=== PATIENT | female | born 1960 | race Caucasian/White ===

== ENCOUNTER 2016-12-11 09:48 | Inpatient (IN) | payer BC, OTHER ==
[2016-12-11] VITALS (11 sets, daily range): BP systolic 112–131; BP diastolic 62–89; PULSE 98–121; RESP 18–28; TEMP 97.5–98.6; O2SAT 93–100
[~2016-12-11] VITALS: Ht 165.1 cm; Wt 80.1 kg
[~2016-12-11 09:48] MED LIST: ALPR.5 PO; CELE20TA PO; GABA300C5 PO; MELO-1 PO; PREM0.3T2 PO
--- NOTE | 2016-12-11 10:12 | PD ---
HPI Chief Complaint: Respiratory Symptoms Time Seen by Provider: 09:57 Travel History International Travel<30 days: No Contact w/Intl Traveler<30days: No Traveled to known affect area: No History of Present Illness HPI The patient is a 56-year-old female who presents emergency department from her physician's office for evaluation for possible pulmonary embolism. The patient states she had acute, sudden onset of shortness of breath yesterday. The patient states she has been short of breath since yesterday, worse with exertion, minimally alleviated at rest. The patient denies any chest pain, cough, tobacco history, or history of congestive heart failure, COPD , asthma, recurrent pneumonia. The patient is currently treated with estrogen for postmenopausal symptoms, but denies any known history of pulmonary embolism or DVT. The patient denies any recent hospitalizations, recent surgeries, recent prolonged travel. She denies any acute swelling to lower extremities. The patient's symptoms are moderate, worse with exertion, and minimally alleviated at rest. The patient does have a history of sciatica, but denies any known history of CAD or cardiomyopathy. PFSH Past Medical History Narrative Medical Sciatica Medical History: Denies Significant Hx Influenza Vaccination: No ?: Not Menopausal: Yes Past Surgical History Narrative Surgical Appendectomy, tonsillectomy Appendectomy: Yes Tonsillectomy: Yes Social History Alcohol Use: No Tobacco Use: No Substance Use: No Allergies-Medications (Allergen,Severity, Reaction): Coded Allergies: No Known Allergies (Unverified , 12/11/16) Reported Meds & Prescriptions Reported Meds & Active Scripts Active Celexa (Citalopram Hydrobromide) 20 Mg Tab 20 Mg PO DAILY Prempro Blister Pack (Estrogens Conj/Medroxyprogest Acet) 0.3-1.5 Mg Tab 1 Tab PO DAILY Reported Gabapentin 300 Mg Cap 300 Mg PO DAILY Meloxicam 15 Mg Tab 15 Mg PO TID PRN Review of Systems Except as stated in HPI: all other systems reviewed are Neg General / Constitutional: No: Fever HENT: No: Lightheadedness Cardiovascular: Positive: Dyspnea on exertion, No: Chest Pain or Discomfort, Diaphoresis Respiratory: Positive: Shortness of Breath, No: Cough Gastrointestinal: No: Nausea, Vomiting, Abdominal Pain Musculoskeletal: No: Edema Neurologic: No: Dizziness Physical Exam Narrative GENERAL: Awake, alert, pleasant 56-year-old female who appears her stated age and is in mild respiratory distress. SKIN: Warm and dry. HEAD: Atraumatic. Normocephalic. EYES: Pupils equal and round. No scleral icterus. No injection or drainage. ENT: No nasal bleeding or discharge. Mucous membranes pink and moist. NECK: Trachea midline. No JVD. CARDIOVASCULAR: Regular, tachycardic with a heart rate of 115. RESPIRATORY: No accessory muscle use. Clear to auscultation. Breath sounds equal bilaterally. GASTROINTESTINAL: Abdomen soft, non-tender, nondistended. No rebound tenderness. MUSCULOSKELETAL: No obvious deformities. No clubbing. No cyanosis. No edema. Calves are soft bilaterally. NEUROLOGICAL: Awake and alert. No obvious cranial nerve deficits. Motor grossly within normal limits. Normal speech. PSYCHIATRIC: Appropriate mood and affect; insight and judgment normal. Data Data Last Documented VS Vital Signs Date Time Temp Pulse Resp B/P Pulse Ox O2 Delivery O2 Flow Rate FiO2 12/11/16 10:57 98 Nasal Cannula 2 12/11/16 10:30 110 20 112/62 12/11/16 09:53 97.7 Orders Complete Blood Count With Diff (12/11/16 10:07) Comprehensive Metabolic Panel (12/11/16 10:07) B-Type Natriuretic Peptide (12/11/16 10:07) Act Partial Throm Time (Ptt) (12/11/16 10:07) Prothrombin Time / Inr (Pt) (12/11/16 10:07) Magnesium (Mg) (12/11/16 10:07) Ckmb (Isoenzyme) Profile (12/11/16 10:07) Troponin I (12/11/16 10:07) Iv Access Insert/Monitor (12/11/16 10:07) Electrocardiogram (12/11/16 10:07) Ecg Monitoring (12/11/16 10:07) Oximetry (12/11/16 10:07) Oxygen Administration (12/11/16 10:07) Chest, Single Ap (12/11/16 10:07) Ct Pulmonary Angiogram (12/11/16 10:07) Sodium Chloride 0.9% Flush (Ns Flush) (12/11/16 10:15) Resp Blood Gas Venous (12/11/16 ) Blood Gas Venous (Vbg) (12/11/16 10:15) Iohexol 350 Inj (Omnipaque 350 Inj) (12/11/16 11:18) Heparin Infusion LIONEL.Q1H (12/11/16 11:25) Heparin Inj (Heparin Inj) (12/11/16 11:30) Heparin Inj (Heparin Inj) (12/11/16 17:30) Heparin Inj (Heparin Inj) (12/11/16 17:30) Heparin-D5w Inj (Heparin-D5w Inj) (12/11/16 11:30) Act Partial Throm Time (Ptt) (12/11/16 11:25) Cbc No Diff, Includes Plts (12/11/16 11:25) Cbc No Diff, Includes Plts (12/14/16 06:00) Act Partial Throm Time (Ptt) (12/11/16 18:25) Occult Blood (Hemoccult) Stool (12/11/16 11:25) Diphenhydramine Inj (Benadryl Inj) (12/11/16 12:00) Admit Order (Ed Use Only) (12/11/16 12:00) Labs Laboratory Tests Test 12/11/16 12/11/16 12/11/16 10:15 10:16 11:35 Blood Gas Puncture Site RAC Blood Gas Patient Temperature 37.0 Venous Blood pH 7.42 Venous Blood Partial Pressure 36 mmHg CO2 Venous Blood Partial Pressure 20 mmHg O2 Venous Blood HCO3 23 mmol/L Venous Blood Oxygen Saturation 28 % Venous Blood Oxygen Content 6.1 Vol % Venous Blood Base Excess -1.0 mmol/L Oxygen Delivery Device ROOM AIR Blood Gas Inspired Oxygen 21 % White Blood Count 8.8 TH/MM3 10.0 TH/MM3 Red Blood Count 4.73 MIL/MM3 4.37 MIL/MM3 Hemoglobin 15.3 GM/DL 14.3 GM/DL Hematocrit 45.0 % 42.0 % Mean Corpuscular Volume 95.3 FL 96.0 FL Mean Corpuscular Hemoglobin 32.4 PG 32.6 PG Mean Corpuscular Hemoglobin 34.0 % 34.0 % Concent Red Cell Distribution Width 14.0 % 13.9 % Platelet Count 289 TH/MM3 254 TH/MM3 Mean Platelet Volume 8.4 FL 8.0 FL Neutrophils (%) (Auto) 74.4 % Lymphocytes (%) (Auto) 18.6 % Monocytes (%) (Auto) 5.7 % Eosinophils (%) (Auto) 0.6 % Basophils (%) (Auto) 0.7 % Neutrophils # (Auto) 6.5 TH/MM3 Lymphocytes # (Auto) 1.6 TH/MM3 Monocytes # (Auto) 0.5 TH/MM3 Eosinophils # (Auto) 0.1 TH/MM3 Basophils # (Auto) 0.1 TH/MM3 CBC Comment DIFF FINAL Differential Comment Prothrombin Time 10.4 SEC Prothromb Time International 0.9 RATIO Ratio Activated Partial 29.4 SEC 29.0 SEC Thromboplast Time Sodium Level 140 MEQ/L Potassium Level 3.9 MEQ/L Chloride Level 106 MEQ/L Carbon Dioxide Level 23.8 MEQ/L Anion Gap 10 MEQ/L Blood Urea Nitrogen 12 MG/DL Creatinine 1.00 MG/DL Estimat Glomerular Filtration 58 ML/MIN Rate Random Glucose 136 MG/DL Calcium Level 8.4 MG/DL Magnesium Level 2.3 MG/DL Total Bilirubin 1.0 MG/DL Aspartate Amino Transf 18 U/L (AST/SGOT) Alanine Aminotransferase 25 U/L (ALT/SGPT) Alkaline Phosphatase 61 U/L Total Creatine Kinase 69 U/L Troponin I 0.17 NG/ML B-Type Natriuretic Peptide 571 PG/ML Total Protein 8.1 GM/DL Albumin 3.8 GM/DL [facility] Medical Decision Making Medical Screen Exam Complete: Yes Emergency Medical Condition: Yes Medical Record Reviewed: Yes Interpretation(s) EKG reveals sinus tachycardia with a heart rate of 112. S1Q3T3. Laboratory Tests Test 12/11/16 12/11/16 10:15 10:16 Blood Gas Puncture Site RAC Blood Gas Patient Temperature 37.0 Venous Blood pH 7.42 Venous Blood Partial Pressure 36 mmHg CO2 Venous Blood Partial Pressure 20 mmHg O2 Venous Blood HCO3 23 mmol/L Venous Blood Oxygen Saturation 28 % Venous Blood Oxygen Content 6.1 Vol % Venous Blood Base Excess -1.0 mmol/L Oxygen Delivery Device ROOM AIR Blood Gas Inspired Oxygen 21 % White Blood Count 8.8 TH/MM3 Red Blood Count 4.73 MIL/MM3 Hemoglobin 15.3 GM/DL Hematocrit 45.0 % Mean Corpuscular Volume 95.3 FL Mean Corpuscular Hemoglobin 32.4 PG Mean Corpuscular Hemoglobin 34.0 % Concent Red Cell Distribution Width 14.0 % Platelet Count 289 TH/MM3 Mean Platelet Volume 8.4 FL Neutrophils (%) (Auto) 74.4 % Lymphocytes (%) (Auto) 18.6 % Monocytes (%) (Auto) 5.7 % Eosinophils (%) (Auto) 0.6 % Basophils (%) (Auto) 0.7 % Neutrophils # (Auto) 6.5 TH/MM3 Lymphocytes # (Auto) 1.6 TH/MM3 Monocytes # (Auto) 0.5 TH/MM3 Eosinophils # (Auto) 0.1 TH/MM3 Basophils # (Auto) 0.1 TH/MM3 CBC Comment DIFF FINAL Differential Comment Prothrombin Time 10.4 SEC Prothromb Time International 0.9 RATIO Ratio Activated Partial 29.4 SEC Thromboplast Time Sodium Level 140 MEQ/L Potassium Level 3.9 MEQ/L Chloride Level 106 MEQ/L Carbon Dioxide Level 23.8 MEQ/L Anion Gap 10 MEQ/L Blood Urea Nitrogen 12 MG/DL Creatinine 1.00 MG/DL Estimat Glomerular Filtration 58 ML/MIN Rate Random Glucose 136 MG/DL Calcium Level 8.4 MG/DL Magnesium Level 2.3 MG/DL Total Bilirubin 1.0 MG/DL Aspartate Amino Transf 18 U/L (AST/SGOT) Alanine Aminotransferase 25 U/L (ALT/SGPT) Alkaline Phosphatase 61 U/L Total Creatine Kinase 69 U/L Troponin I 0.17 NG/ML B-Type Natriuretic Peptide 571 PG/ML Total Protein 8.1 GM/DL Albumin 3.8 GM/DL Last Impressions Chest X-Ray 12/11/16 1007 Signed Impressions: Service Date/Time: Sunday, December 11, 2016 10:20 - CONCLUSION: No acute disease. Hugh Kaye MD CT pulmonary angiogram reveals large bilateral pulmonary emboli Differential Diagnosis Differential diagnosis includes pulmonary embolism, cardiomyopathy, pleural effusion, pneumothorax, pneumonia, reactive airway disease, sepsis. Narrative Course IV was established, labs were drawn and sent, and the patient was placed on cardiac telemetry monitoring and continuous pulse oximetry monitoring. EKG was ordered and interpreted. Chest x-ray was ordered. CT pulmonary angiogram was ordered to evaluate for possible pulmonary embolism. The patient was placed on oxygen via nasal cannula bedside. VBG was obtained. ABG reveals hypoxia. Chest x-rays unremarkable. EKG reveals sinus tachycardia and S1Q3T3. Troponin is elevated 0.17. CT pulmonary angiogram reveals bilateral pulmonary embolism, I discussed the CT findings with the radiologist, Dr. Raymond, personally. The patient was then placed on a heparin drip. The patient will be admitted to the medical service, patient has a manic, therefore, [facility] were paged for admission. As the patient does have tachycardia, mild hypoxia, and bilateral pulmonary embolism, patient will be admitted to the stepdown unit in the ICU at [facility]. The patient did break out with a small rash on the left forearm, volar aspect, that was blanchable. The patient states she normally gets a rash in the morning and then will take an antihistamine with good effects. There does not appear to be a systemic rash, I doubt the patient does have an allergic reaction to the heparin and/or CT dye. The patient was rn interventional Benadryl 25 g intravenously in the rash continued to be monitored. Critical Care Narrative Aggregate critical care time was 35 minutes. Time to perform other separately billable procedures was not included in the critical care time. My time did not include minutes spent treating any other patients simultaneously or on activities that did not directly contribute to the patient's treatment. The services I provided to this patient were to treat and/or prevent clinically significant deterioration that could result in: Anoxia, hypoxia, arrhythmia, . I provided critical care services requiring my management, as noted below: Chart data review, documentation time, medication orders and management, vital sign assessments/reviewing monitor data, ordering and reviewing lab tests, ordering and interpreting/reviewing x-rays and diagnostic studies, care of the patient and discussion of the patient with the admitting physicians. Physician Communication Physician Communication I discussed the patient Dr. Ho who agrees with admission. Diagnosis Primary Impression: Bilateral pulmonary embolism Admitting Information Admitting Physician Requests: Admit Condition: Stable Otilio Raymond MD Dec 11, 2016 10:12
[2016-12-11] MEDS ORDERED: SODIUM CHLORIDE 0.9% FLUSH 5 ML FLUSH IVF PRN (10:15)
[2016-12-11 10:23] LABS: BLOOD GAS VENOUS HCO3 23 mmol/L (22-26); BLOOD GAS VENOUS O2 CONTENT 6.1 Vol % (9.0-17.0); BLOOD GAS VENOUS O2 HGB SAT 28 % (70-76); BLOOD GAS VENOUS PCO2 36 mmHg (44-48); BLOOD GAS VENOUS PO2 20 mmHg (35-40); BLOOD GAS VENOUS pH 7.42 (7.360-7.400)
[2016-12-11 10:25] LABS: CRITICAL VALUE YES; DRAW SITE RAC; FIO2 21 %; OXYGEN DEVICE ROOM AIR; STAT YES
[2016-12-11 10:30] LABS: AUTOMATED NEUTROPHIL # 6.5 TH/MM3 (1.8-7.7); BASOPHIL # 0.1 TH/MM3 (0-0.2); BASOPHIL % 0.7 % (0.0-2.0); EOSINOPHIL # 0.1 TH/MM3 (0-0.4); EOSINOPHIL % 0.6 % (0.0-4.0); HEMO FLAGS DIFF FINAL; LYMPH % 18.6 % (9.0-44.0); LYMPHOCYTE # 1.6 TH/MM3 (1.0-4.8); MEAN CELL VOLUME 95.3 FL (80.0-100.0); MEAN CORPUSCULAR HEMOGLOBIN 32.4 PG (27.0-34.0); MONO % 5.7 % (0.0-8.0); NEUT % 74.4 % (16.0-70.0); PLATELET COUNT 289 TH/MM3 (150-450); RED BLOOD COUNT 4.73 MIL/MM3 (4.00-5.30); WHITE BLOOD COUNT 8.8 TH/MM3 (4.0-11.0)
--- NOTE | 2016-12-11 10:34 | RADHPO ---
EXAM DATE/TIME: 12/11/2016 10:20 [facility] COMPARISON: No previous studies available for comparison. INDICATIONS : Short of breath. MEDICAL HISTORY : None. SURGICAL HISTORY : None. ENCOUNTER: Initial ACUITY: 1 day PAIN SCORE: 0/10 LOCATION: Bilateral chest FINDINGS: A single view of the chest demonstrates the lungs to be symmetrically aerated without evidence of mas s, infiltrate or effusion. The cardiomediastinal contours are unremarkable. Osseous structures are intact. There is a remote healed sixth or seventh rib fracture. CONCLUSION: No acute disease. Hugh Kaye MD on December 11, 2016 at 10:29 Board Certified Radiologist. This report was verified electronically.
[2016-12-11 10:38] LABS: CHLORIDE 106 MEQ/L (98-107); POTASSIUM 3.9 MEQ/L (3.5-5.1); SODIUM (NA) 140 MEQ/L (136-145)
[2016-12-11 10:41] LABS: ANION GAP 10 MEQ/L (5-15); BICARBONATE 23.8 MEQ/L (21.0-32.0); MAGNESIUM 2.3 MG/DL (1.5-2.5)
[2016-12-11 10:42] LABS: APTT (PATIENT) 29.4 SEC (24.3-30.1); BLOOD UREA NITROGEN 12 MG/DL (7-18); INTERNATIONAL NORMALIZED RATIO 0.9 RATIO; PROTHROMBIN TIME - PATIENT 10.4 SEC (9.8-11.6)
[2016-12-11 10:44] LABS: ALT (GPT) 25 U/L (10-53)
[2016-12-11 10:45] LABS: AST (GOT) 18 U/L (15-37); GLOMERULAR FILTRATION RATE 58 ML/MIN (>89)
[2016-12-11 10:47] LABS: ALKALINE PHOSPHATASE 61 U/L (45-117)
[2016-12-11 10:48] LABS: CREATINE KINASE 69 U/L (26-192)
[2016-12-11] MEDS ORDERED: IOHEXOL 350 MG/ML 10 ML VIAL (for RAD DIAG) IV ONE (11:18)
[2016-12-11] MEDS ORDERED: HEPARIN SODIUM - IV 10,000 UNITS/10 ML VIAL IV ONE (11:30)
[2016-12-11] MEDS: HEPARIN-D5W INJ 250 ML IV SCH (11:44)
[2016-12-11 11:49] LABS: MEAN CORPUSCULAR HEMOGLOBIN 32.6 PG (27.0-34.0); PLATELET COUNT 254 TH/MM3 (150-450); RED BLOOD COUNT 4.37 MIL/MM3 (4.00-5.30); RED CELL DISTRIBUTION WIDTH 13.9 % (11.6-17.2); REVIEW FLAG FINAL
[2016-12-11] MEDS ORDERED: diphenhydrAMINE HCL 50 MG/ML VIAL IV PUSH ONE (12:00)
[2016-12-11] MEDS ORDERED: ONDANSETRON HCL 4 MG/2 ML VIAL IVP PRN (12:00)
[2016-12-11] MEDS ORDERED: NALOXONE HCL 0.4 MG/ML AMP IV PRN ×2 (12:00→17:45)
[2016-12-11] MEDS ORDERED: ACETAMINOPHEN 325 MG TAB PO PRN (12:00)
[2016-12-11] MEDS ORDERED: SODIUM CHLORIDE 0.9% FLUSH 5 ML FLUSH FLUSH PRN (12:00)
--- NOTE | 2016-12-11 12:07 | RADHPO ---
EXAM DATE/TIME: 12/11/2016 11:08 [facility] COMPARISON: No previous studies available for comparison. INDICATIONS : Short of breath. Evaluate for pulmonary embolism. IV CONTRAST: 65 cc Omnipaque 350 (iohexol) IV RADIATION DOSE: 15.81 CTDIvol (mGy) MEDICAL HISTORY : None SURGICAL HISTORY : Tonsillectomy. Appendectomy. ENCOUNTER: Initial ACUITY: 2 days PAIN SCALE: 0/10 LOCATION: chest TECHNIQUE: Volumetric scanning of the chest was performed using a pulmonary embolism protocol MIP images were re constructed. Using automated exposure control and adjustment of the mA and/or kV according to patien t size, radiation dose was kept as low as reasonably achievable to obtain optimal diagnostic quality images. FINDINGS: There are large bilateral pulmonary emboli. There are no suspicious lung lesions identified. There is no axillary or mediastinal adenopathy appreciated. The portions of the liver and spleen identified are free of focal defects. Review of bone windows reveal degenerative changes. CONCLUSION: Large bilateral pulmonary emboli. Hunter Raymond MD FACR on December 11, 2016 at 12:00 Board Certified Radiologist. This report was verified electronically.
--- NOTE | 2016-12-11 17:21 | HHI.HP ---
[facility] Physician Michelle Avila MD Admission Diagnosis bilateral pulmonary embolism, mild hypoxia Diagnoses: Travel History International Travel<30 Days: No Contact w/Intl Traveler <30 Da: No Traveled to Known Affected Are: No History of Present Illness This is a very pleasant 56-year-old female with no significant past medical history who presented to the ER complaining of shortness of breath beginning yesterday. 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 Symptoms were moderate to severe. Provoked by activity and alleviated by rest. She went to bed and when she woke up this morning she got short of breath even getting dressed. She went to her primary care physician who recommended she come to the hospital. In the emergency department with a CTA revealed large bilateral pulmonary emboli. She was mildly hypoxemic on room air however not in any respiratory distress. Mildly tachycardic however blood pressure stable. She was placed on heparin drip and admitted to intermediate care. The patient does take estrogen product for menopause symptoms. She denies any recent travel. Denies any leg swelling. Denies any family history of blood clots. She is up-to-date on her mammogram and colonoscopy. 10 pt ROS otherwise negative. Past Family Social History Past Medical History as per hpi Allergies: Coded Allergies: Prilosec (Verified Allergy, Intermediate, 12/12/16) stomach pains Family History neg for blood clot Social History as per hpi - no e/t/d Physical Exam Vital Signs Vital Signs Date Time Temp Pulse Resp B/P Pulse Ox O2 Delivery O2 Flow Rate FiO2 12/11/16 13:35 98.3 108 21 112/80 94 12/11/16 12:25 108 18 122/82 98 Nasal Cannula 2 12/11/16 10:57 98 Nasal Cannula 2 12/11/16 10:30 110 20 112/62 96 Room Air 12/11/16 10:21 95 Room Air 12/11/16 10:09 95 Room Air 12/11/16 10:06 22 95 Room Air 12/11/16 10:06 120 20 95 Room Air 12/11/16 09:53 97.7 121 20 118/89 93 Physical Exam GENERAL: This is a well-nourished, well-developed patient, in no apparent distress. SKIN: No rashes, ecchymoses or lesions. Cool and dry. HEAD: Atraumatic. Normocephalic. No temporal or scalp tenderness. EYES: Pupils equal round and reactive. Extraocular motions intact. No scleral icterus. No injection or drainage. ENT: Nose without bleeding, purulent drainage or septal hematoma. Throat without erythema, tonsillar hypertrophy or exudate. Uvula midline. Airway patent. NECK: Trachea midline. No JVD or lymphadenopathy. Supple, nontender, no meningeal signs. CARDIOVASCULAR: Regular rate and rhythm without murmurs, gallops, or rubs. RESPIRATORY: Clear to auscultation. Breath sounds equal bilaterally. No wheezes , rales, or rhonchi. GASTROINTESTINAL: Abdomen soft, non-tender, nondistended. No hepato-splenomegaly , or palpable masses. No guarding. MUSCULOSKELETAL: Extremities without clubbing, cyanosis, or edema. No joint tenderness, effusion, or edema noted. No calf tenderness. Negative Homans sign bilaterally. NEUROLOGICAL: Awake and alert. Cranial nerves II through XII intact. Motor and sensory grossly within normal limits. Five out of 5 muscle strength in all muscle groups. Normal speech. Laboratory Laboratory Tests Test 12/11/16 12/11/16 12/11/16 12/11/16 10:15 10:16 11:35 12:16 Blood Gas Puncture Site RAC Blood Gas Patient Temperature 37.0 Venous Blood pH 7.42 Venous Blood Partial Pressure 36 CO2 Venous Blood Partial Pressure 20 O2 Venous Blood HCO3 23 Venous Blood Oxygen Saturation 28 Venous Blood Oxygen Content 6.1 Venous Blood Base Excess -1.0 Oxygen Delivery Device ROOM AIR Blood Gas Inspired Oxygen 21 White Blood Count 8.8 10.0 Red Blood Count 4.73 4.37 Hemoglobin 15.3 14.3 Hematocrit 45.0 42.0 Mean Corpuscular Volume 95.3 96.0 Mean Corpuscular Hemoglobin 32.4 32.6 Mean Corpuscular Hemoglobin 34.0 34.0 Concent Red Cell Distribution Width 14.0 13.9 Platelet Count 289 254 Mean Platelet Volume 8.4 8.0 Neutrophils (%) (Auto) 74.4 Lymphocytes (%) (Auto) 18.6 Monocytes (%) (Auto) 5.7 Eosinophils (%) (Auto) 0.6 Basophils (%) (Auto) 0.7 Neutrophils # (Auto) 6.5 Lymphocytes # (Auto) 1.6 Monocytes # (Auto) 0.5 Eosinophils # (Auto) 0.1 Basophils # (Auto) 0.1 CBC Comment DIFF FINAL Differential Comment Prothrombin Time 10.4 Prothromb Time International 0.9 Ratio Activated Partial 29.4 29.0 Thromboplast Time Sodium Level 140 Potassium Level 3.9 Chloride Level 106 Carbon Dioxide Level 23.8 Anion Gap 10 Blood Urea Nitrogen 12 Creatinine 1.00 Estimat Glomerular Filtration 58 Rate Random Glucose 136 Calcium Level 8.4 Magnesium Level 2.3 Total Bilirubin 1.0 Aspartate Amino Transf 18 (AST/SGOT) Alanine Aminotransferase 25 (ALT/SGPT) Alkaline Phosphatase 61 Total Creatine Kinase 69 60 Troponin I 0.17 0.20 B-Type Natriuretic Peptide 571 Total Protein 8.1 Albumin 3.8 Result Diagram: 12/11/16 1135 12/11/16 1016 Imaging Last Impressions Chest X-Ray 12/11/16 1007 Signed Impressions: Service Date/Time: Sunday, December 11, 2016 10:20 - CONCLUSION: No acute disease. Hugh Kaye MD CT Angiography 12/11/16 1007 Signed Impressions: Service Date/Time: Sunday, December 11, 2016 11:08 - CONCLUSION: Large bilateral pulmonary emboli. Hunter Raymond MD FACR Lower Extremity Ultrasound 12/11/16 0000 Signed Impressions: Service Date/Time: Sunday, December 11, 2016 19:51 - CONCLUSION: Negative exam with no evidence of deep venous thrombosis. Mat Amador MD Assessment and Plan Assessment and Plan -Bilateral pulmonary embolism, likely provoked by estrogen product. Will order Doppler of the lower extremities to rule out DVT. We'll keep her on heparin drip overnight. I discussed oral anticoagulation options with the patient and she would like to be treated with Xarelto. We will provide her a 30 day coupon for this. Will monitor over night. Will get ART walk test in the morning. If she is doing better tomorrow she may possibly be discharged home on oral Xarelto. However she is still significantly dyspneic we may consider keeping her another day. The patient was advised that she should be on the Xarelto for one year. I offered hematology consultation however she states she would prefer to do that in the outpatient setting. She is advised to avoid any further estrogen products in the future. At this time she is clinically stable and there is no indication for thrombolysis, however we'll continue monitor her in intermediate care. -Insomnia. The patient requested be treated with doxylamine and Benadryl as she takes at home. Amber Ho MD Dec 11, 2016 17:21
[2016-12-11] MEDS ORDERED: HEPARIN SODIUM - IV 10,000 UNITS/10 ML VIAL IV PRN ×2 (17:30)
[2016-12-11] MEDS ORDERED: ACETAMINOPHEN/HYDROcodone 325 MG/10 MG TAB PO PRN (17:45)
[2016-12-11] MEDS ORDERED: ACETAMINOPHEN/HYDROcodone 325 MG/5 MG TAB PO PRN (17:45)
[2016-12-11] MEDS ORDERED: GABAPENTIN 300 MG CAP PO SCH (18:00)
[2016-12-11 18:43] LABS: APTT (PATIENT) 59.2 SEC (24.3-30.1)
--- NOTE | 2016-12-11 20:30 | RADHPO ---
EXAM DATE/TIME: 12/11/2016 19:51 [facility] COMPARISON: No previous studies available for comparison. INDICATIONS : Thrombosis. MEDICAL HISTORY : Arthritis. Estrogen replacement. Bilateral pulmonary emboli. SURGICAL HISTORY : Tonsillectomy.Appendectomy. ENCOUNTER: Initial ACUITY: 1 day PAIN SCORE: 0/10 LOCATION: Bilateral legs. TECHNIQUE: Venous ultrasound of the left and right leg was performed from the inguinal ligament to the proximal calf. Real-time, color Doppler and spectral tracing, compression and augmentation techniques were us ed. FINDINGS: RIGHT LEG: There is normal compressibility of the deep venous system from the inguinal region to the proximal ca lf. No echogenic clot is seen in the lumen of the common femoral, femoral, popliteal, and posterior tibial veins. There is a normal response of the venous system to proximal and distal augmentation an d respiration. LEFT LEG: There is normal compressibility of the deep venous system from the inguinal region to the proximal ca lf. No echogenic clot is seen in the lumen of the common femoral, femoral, popliteal, and posterior tibial veins. There is a normal response of the venous system to proximal and distal augmentation an d respiration. CONCLUSION: Negative exam with no evidence of deep venous thrombosis. Mat Amador MD on December 11, 2016 at 20:28 Board Certified Radiologist. This report was verified electronically.
[2016-12-11] MEDS: SODIUM CHLORIDE 0.9% FLUSH 5 ML FLUSH FLUSH SCH (21:47)
[2016-12-11] MEDS: ALPRAZolam 0.5 MG TAB PO PRN (21:50)
[2016-12-12] VITALS (18 sets, daily range): BP systolic 98–113; BP diastolic 59–76; PULSE 77–90; RESP 12–24; TEMP 97.6–98.6; O2SAT 92–100
[2016-12-12 00:52] LABS: APTT (PATIENT) 48.5 SEC (24.3-30.1)
[2016-12-12] MEDS: ACETAMINOPHEN/HYDROcodone 325 MG/5 MG TAB PO PRN ×4 (02:41→23:31)
[2016-12-12] MEDS: ALPRAZolam 0.5 MG TAB PO PRN (08:51)
[2016-12-12] MEDS: SODIUM CHLORIDE 0.9% FLUSH 5 ML FLUSH FLUSH SCH ×2 (08:52→20:34)
[2016-12-12] MEDS: CITALOPRAM HYDROBROMIDE 20 MG TAB PO SCH (08:52)
[2016-12-12] MEDS ORDERED: GABAPENTIN 300 MG CAP PO SCH (09:00)
--- NOTE | 2016-12-12 12:20 | EC ---
Study Study Date:12/12/2016 STUDY CONCLUSIONS SUMMARY - Left ventricle: The cavity size was normal. Wall thickness was normal. Systolic function was at the lower limits of normal. The estimated ejection fraction was in the range of 50% to 55%. Wall motion was normal; there were no regional wall motion abnormalities. - Ventricular septum: The contour showed diastolic flattening. These changes are consistent with RV volume overload. - Right ventricle: The cavity size was moderately dilated. Systolic function was reduced. - Right atrium: The atrium was moderately dilated. - Atrial septum: The septum bowed from right to left, consistent with increased right atrial pressure. If LV function is below 40, please consider prescribing an ACEI or ARB or document rationale for non-use. PROCEDURE DATA STUDY STATUS: Elective. Procedure: Transthoracic echocardiography. Image quality was good. Scanning was performed from the parasternal, apical, and subcostal acoustic windows. Study completion: The patient tolerated the procedure well. Transthoracic echocardiography. M-mode, complete 2D, complete spectral Doppler, and color Doppler. Patient status: Inpatient. CARDIAC ANATOMY LEFT VENTRICLE: The cavity size was normal. Wall thickness was normal. Systolic function was at the lower limits of normal. The estimated ejection fraction was in the range of 50% to 55%. Wall motion was normal; there were no regional wall motion abnormalities. AORTIC VALVE: Trileaflet; normal thickness leaflets. Doppler: Transvalvular velocity was within the normal range. There was no stenosis. No regurgitation. AORTA: Aortic root: The aortic root was normal in size. MITRAL VALVE: Structurally normal valve. Doppler: Transvalvular velocity was within the normal range. There was no evidence for stenosis. Trace regurgitation. LEFT ATRIUM: The atrium was normal in size. ATRIAL SEPTUM: The septum bowed from right to left, consistent with increased right atrial pressure. RIGHT VENTRICLE: The cavity size was moderately dilated. Systolic function was reduced. VENTRICULAR SEPTUM: The contour showed diastolic flattening. These changes are consistent with RV volume overload. PULMONIC VALVE: Doppler: Transvalvular velocity was within the normal range. There was no evidence for stenosis. No regurgitation. TRICUSPID VALVE: Structurally normal valve. Doppler: Transvalvular velocity was within the normal range. No regurgitation. PULMONARY ARTERY: Systolic pressure could not be accurately estimated. RIGHT ATRIUM: The atrium was moderately dilated. PERICARDIUM: There was no pericardial effusion. SYSTEMIC VEINS: Inferior vena cava: The vessel was mildly dilated. BASIC MEASUREMENTS ADULT Normal Left ventricle LV internal dimension, ED, chordal level, *41.4 mm 43-52 PLAX LV internal dimension, ES, chordal level, 33 mm 23-38 PLAX Fractional shortening, chordal level, PLAX *20 % >29 LV posterior wall thickness, ED 9.8 mm IVS/LVPW ratio, ED 1.1 <1.3 Ventricular septum Septal thickness, ED 10.8 mm Aortic valve Leaflet separation 21 mm 15-26 Right ventricle RV internal dimension, ED, PLAX 35.2 mm 19-38 BASIC MEASUREMENTS ADULT Normal Aortic valve Leaflet separation 21 mm 15-26 Aorta Root diameter, ED 34 mm 20-37 Left atrium Anterior-posterior dimension, ES 30 mm 19-40 LA/aortic root ratio 0.88 DOPPLER MEASUREMENTS ADULT Normal Tricuspid valve Regurgitant peak velocity 247 cm/s Peak RV-RA gradient, S 24 mm Hg Maximal regurgitant velocity 247 cm/s Systemic veins Estimated CVP 10 mm Hg Right ventricle RV pressure, S *34 mm Hg <30 LEGEND: Mean values are shown as u=mean value. Asterisk (*) morales values outside specified normal range. Prepared and signed by Domenico Zimmerman [id number]
--- NOTE | 2016-12-12 12:25 | HHI.PR ---
Subjective Remarks Patient seen and evaluated today in follow-up for pulmonary embolism which is bilateral and large. Patient feels better. She was however hypoxemic overnight requiring nonrebreather. Patient also complaining of back pain. His chronic sciatica. Her home medications have been reviewed. She also complains of insomnia for which she has used Ambien in the past Objective Vitals Vital Signs Date Time Temp Pulse Resp B/P Pulse Ox O2 Delivery O2 Flow Rate FiO2 12/12/16 11:55 97.8 80 12 105/76 96 12/12/16 11:00 84 23 96 12/12/16 10:00 84 20 92 12/12/16 09:00 84 18 97 12/12/16 08:30 98 Nasal Cannula 1.00 12/12/16 08:20 96 Nasal Cannula 2.00 12/12/16 08:00 78 24 99 12/12/16 08:00 88 12/12/16 07:42 97.7 80 23 98/59 98 12/12/16 07:15 95 Nasal Cannula 3.00 12/12/16 04:03 98.0 79 20 113/71 98 12/12/16 03:41 15 12/12/16 02:00 95 Nasal Cannula 3.00 12/12/16 02:00 95 Nasal Cannula 3.00 12/12/16 00:03 82 12 100 12/12/16 00:00 98.6 81 15 106/68 100 12/11/16 23:30 99 Simple Mask 6.00 12/11/16 21:30 100 Simple Mask 6.00 12/11/16 20:00 97.5 100 28 131/75 94 12/11/16 20:00 87 Nasal Cannula 2.50 12/11/16 19:45 97 Nasal Cannula 2.00 12/11/16 16:00 98.6 98 20 115/86 98 12/11/16 15:00 100 Nasal Cannula 2.00 12/11/16 13:35 98.3 108 21 112/80 94 12/11/16 12:25 108 18 122/82 98 Nasal Cannula 2 I/O 12/11/16 12/11/16 12/11/16 12/12/16 12/12/16 12/12/16 07:00 15:00 23:00 07:00 15:00 23:00 Intake Total 20 ml 258 ml 457 ml Output Total 200 ml 0 ml Balance 20 ml 58 ml 457 ml Intake Oral 120 ml 360 ml IV Total 20 ml 138 ml 97 ml Output Urine Total 200 ml 0 ml # Bowel Movements 0 0 Result Diagram: 12/11/16 1135 12/11/16 1016 Imaging Last Impressions Chest X-Ray 12/11/16 1007 Signed Impressions: Service Date/Time: Sunday, December 11, 2016 10:20 - CONCLUSION: No acute disease. Hugh Kaye MD CT Angiography 12/11/16 1007 Signed Impressions: Service Date/Time: Sunday, December 11, 2016 11:08 - CONCLUSION: Large bilateral pulmonary emboli. Hunter Raymond MD FACR Lower Extremity Ultrasound 12/11/16 0000 Signed Impressions: Service Date/Time: Sunday, December 11, 2016 19:51 - CONCLUSION: Negative exam with no evidence of deep venous thrombosis. Mat Amador MD Objective Remarks GENERAL: This is a well-nourished, well-developed patient, in no apparent distress. CARDIOVASCULAR: Regular rate and rhythm without murmurs, gallops, or rubs. RESPIRATORY: Clear to auscultation. Breath sounds equal bilaterally. No wheezes , rales, or rhonchi. GASTROINTESTINAL: Abdomen soft, non-tender, nondistended. Normal active bowel sounds MUSCULOSKELETAL: Extremities without clubbing, cyanosis, or edema. NEURO: Alert & Oriented x4 to person, place, time, situation. Moves all ext x4 A/P Problem List: (1) Bilateral pulmonary embolism Status: Acute Plan: Likely due to postmenopausal estrogen therapy Still with some hypoxemia overnight. Patient will continue with heparin, will add Coumadin continue with patient education Patient will likely need 6-9 months of therapy Ginette Aranda MD Dec 12, 2016 12:25
[2016-12-12] MEDS: GABAPENTIN 300 MG CAP PO SCH ×2 (13:53→18:24)
[2016-12-12] MEDS: WARFARIN SOD 5 MG TAB PO SCH (15:17)
[2016-12-12] MEDS: CYCLOBENZAPRINE HCL 10 MG TAB PO PRN (15:20)
--- NOTE | 2016-12-12 16:12 | EKG ---
Date Performed: 12/11/2016 Time Performed: 10:24:02 PTAGE: 56 years EKG: Sinus tachycardia Indeterminate axis Possible inferior infarct - age undetermined Abnormal ECG NO PREVIOUS TRACING DOCTOR: Guru Rosas Interpretating Date/Time 12/12/2016 16:10:33
[2016-12-12] MEDS: ZOLPIDEM TARTRATE 10 MG TAB PO PRN (23:30)
[2016-12-13] VITALS (9 sets, daily range): BP systolic 93–112; BP diastolic 68–82; PULSE 71–96; RESP 16–31; TEMP 97.5–98.8; O2SAT 92–99
[2016-12-13 06:06] LABS: PROTHROMBIN TIME - PATIENT 10.9 SEC (9.8-11.6)
[2016-12-13] MEDS: CITALOPRAM HYDROBROMIDE 20 MG TAB PO SCH (09:03)
[2016-12-13] MEDS: GABAPENTIN 300 MG CAP PO SCH ×3 (09:03→16:18)
[2016-12-13] MEDS: SODIUM CHLORIDE 0.9% FLUSH 5 ML FLUSH FLUSH SCH ×2 (09:04→20:52)
[2016-12-13] MEDS: ACETAMINOPHEN/HYDROcodone 325 MG/5 MG TAB PO PRN ×3 (09:07→22:21)
[2016-12-13] MEDS: CYCLOBENZAPRINE HCL 10 MG TAB PO PRN ×2 (11:17→21:17)
--- NOTE | 2016-12-13 12:53 | HHI.PR ---
Subjective Remarks Patient seen and evaluated in follow-up for large pulmonary embolism. Some hypoxemia but overall improved. INR 1.0 today. Coumadin started yesterday. Patient complains of increased dyspnea and constipation Objective Vitals Vital Signs Date Time Temp Pulse Resp B/P Pulse Ox O2 Delivery O2 Flow Rate FiO2 12/13/16 12:00 97.9 84 31 108/73 98 12/13/16 12:00 84 12/13/16 08:00 94 Nasal Cannula 2.00 12/13/16 08:00 78 12/13/16 08:00 98.8 80 20 112/71 96 12/13/16 04:00 97.9 71 20 93/68 92 12/13/16 04:00 71 12/13/16 00:00 78 12/13/16 00:00 97.7 78 18 101/70 96 12/12/16 20:00 77 12/12/16 20:00 97 Nasal Cannula 2.00 12/12/16 20:00 97.6 77 20 107/75 97 12/12/16 19:42 95 Nasal Cannula 1.00 12/12/16 18:18 78 20 97 12/12/16 16:00 90 12/12/16 15:36 97.6 86 19 100/73 96 I/O 12/12/16 12/12/16 12/12/16 12/13/16 12/13/16 12/13/16 06:59 14:59 22:59 06:59 14:59 22:59 Intake Total 457 ml 690 ml 360 ml Output Total 0 ml Balance 457 ml 690 ml 360 ml Intake Oral 360 ml 690 ml 360 ml IV Total 97 ml Output Urine Total 0 ml # Voids 1 3 # Bowel Movements 0 Result Diagram: 12/11/16 1135 12/11/16 1016 Objective Remarks GENERAL: This is a well-nourished, well-developed patient, in no apparent distress. CARDIOVASCULAR: Regular rate and rhythm without murmurs, gallops, or rubs. RESPIRATORY: Clear to auscultation. Breath sounds equal bilaterally. No wheezes , rales, or rhonchi. GASTROINTESTINAL: Abdomen soft, non-tender, nondistended. Normal active bowel sounds MUSCULOSKELETAL: Extremities without clubbing, cyanosis, or edema. NEURO: Alert & Oriented x4 to person, place, time, situation. Moves all ext x4 A/P Problem List: (1) Bilateral pulmonary embolism ICD Code: I26.99 Status: Acute Plan: Likely due to postmenopausal estrogen therapy Still with some hypoxemia overnight. Add bumex, duoneb Patient will continue with heparin/ Coumadin continue with patient education Patient will likely need 6-9 months of therapy Assessment and Plan Bisacodyl X1 med surg ambulate Ginette Aranda MD Dec 13, 2016 12:53
[2016-12-13] MEDS ORDERED: BUMETANIDE INJ 1 MG/4 ML VIAL IV PUSH ONE (13:00)
[2016-12-13] MEDS ORDERED: BISACODYL EC 5 MG TABEC PO ONE (13:00)
[2016-12-13] MEDS: RESP: ALBUTEROL 2.5 MG/IPRATROPIUM 0.5 MG NEB (SCH) NEB ×2 (13:37→19:34)
[2016-12-13] MEDS: WARFARIN SOD 5 MG TAB PO SCH (16:19)
[2016-12-13] MEDS: ZOLPIDEM TARTRATE 10 MG TAB PO PRN (22:21)
[2016-12-14] VITALS (9 sets, daily range): BP systolic 100–118; BP diastolic 73–87; PULSE 72–96; RESP 18–20; TEMP 87–98.3; O2SAT 93–96
[2016-12-14] MEDS: RESP: ALBUTEROL 2.5 MG/IPRATROPIUM 0.5 MG NEB (SCH) NEB ×3 (07:30→19:08)
[2016-12-14 08:40] LABS: APTT (PATIENT) 50.6 SEC (24.3-30.1)
[2016-12-14] MEDS: CITALOPRAM HYDROBROMIDE 20 MG TAB PO SCH (08:52)
[2016-12-14] MEDS: GABAPENTIN 300 MG CAP PO SCH ×3 (08:52→17:12)
[2016-12-14] MEDS: HEPARIN-D5W INJ 250 ML IV SCH (08:56)
[2016-12-14] MEDS: ACETAMINOPHEN/HYDROcodone 325 MG/5 MG TAB PO PRN ×2 (09:00→16:38)
[2016-12-14] MEDS: SODIUM CHLORIDE 0.9% FLUSH 5 ML FLUSH FLUSH SCH ×2 (09:02→21:01)
[2016-12-14 09:55] LABS: PROTHROMBIN TIME - PATIENT 11.4 SEC (9.8-11.6)
[2016-12-14] MEDS: POLYETHYLENE GLYCOL 17 GM PKG PO SCH (12:00)
[2016-12-14] MEDS ORDERED: ENOXAPARIN SODIUM 80 MG/0.8 ML SYRINGE SQ SCH ×2 (12:00→13:00)
[2016-12-14] MEDS: CYCLOBENZAPRINE HCL 10 MG TAB PO PRN (12:10)
--- NOTE | 2016-12-14 12:14 | HHI.PR ---
Subjective Remarks Patient seen today in follow-up for Bilateral pulmonary embolism. Doing much better. Oxygenation remained stable. Patient ambulatory without difficulty. Plan of treatment discussed with patient and friend at bedside Objective Vitals Vital Signs Date Time Temp Pulse Resp B/P Pulse Ox O2 Delivery O2 Flow Rate FiO2 12/14/16 07:31 96 2.00 12/14/16 04:00 96.9 72 18 100/73 96 12/14/16 01:43 98.3 80 20 108/77 96 12/13/16 20:25 97.5 95 16 108/77 93 12/13/16 20:00 95 12/13/16 20:00 Nasal Cannula 2.00 12/13/16 19:35 97 Nasal Cannula 3.00 12/13/16 17:19 20 12/13/16 16:00 97.7 96 18 106/82 97 12/13/16 13:43 99 Nasal Cannula 3.00 12/13/16 12:00 97.9 84 31 108/73 98 12/13/16 12:00 84 I/O 12/13/16 12/13/16 12/13/16 12/14/16 12/14/16 12/14/16 07:00 15:00 23:00 07:00 15:00 23:00 Intake Total 720 ml Output Total 600 ml Balance 120 ml Intake Oral 720 ml Output Urine Total 600 ml # Voids 3 # Bowel Movements 0 Result Diagram: 12/11/16 1135 12/11/16 1016 Objective Remarks GENERAL: This is a well-nourished, well-developed patient, in no apparent distress. CARDIOVASCULAR: Regular rate and rhythm without murmurs, gallops, or rubs. RESPIRATORY: Clear to auscultation. Breath sounds equal bilaterally. No wheezes , rales, or rhonchi. GASTROINTESTINAL: Abdomen soft, non-tender, nondistended. Normal active bowel sounds MUSCULOSKELETAL: Extremities without clubbing, cyanosis, or edema. NEURO: Alert & Oriented x4 to person, place, time, situation. Moves all ext x4 A/P Problem List: (1) Bilateral pulmonary embolism ICD Code: I26.99 Status: Acute Plan: Likely due to postmenopausal estrogen therapy Hypoxemia and shortness of breath continue duo nebs Patient will continue with heparin/ Coumadin continue with patient education Patient will likely need 6-9 months of therapy (2) Troponin level elevated ICD Code: R79.89 Status: Acute Plan: likely due to PE No cardiac work up indicated at this time (3) Diastolic heart failure ICD Code: I50.30 Status: Acute Plan: no hemodynamic instability is noted in this patient, clinically improved out of window for thrombolysis RV Likely due to PE Will need cardio follow up for repeat Echo in a few weeks [facility] Discharge Planning Likely discharge in when INR therapeutic on Coumadin Ginette Aranda MD Dec 14, 2016 12:13
[2016-12-14 12:47] LABS: APTT (PATIENT) 38.4 SEC (24.3-30.1)
[2016-12-14] MEDS: WARFARIN SOD 6 MG TAB PO SCH (16:39)
[2016-12-14 20:46] LABS: APTT (PATIENT) 45.7 SEC (24.3-30.1)
[2016-12-14] MEDS: ZOLPIDEM TARTRATE 10 MG TAB PO PRN (21:42)
[2016-12-15] VITALS (7 sets, daily range): BP systolic 104–129; BP diastolic 71–86; PULSE 76–86; RESP 18–20; TEMP 96.4–97.7; O2SAT 95–98
[2016-12-15] MEDS: ACETAMINOPHEN/HYDROcodone 325 MG/5 MG TAB PO PRN ×4 (01:23→23:41)
[2016-12-15] MEDS: CYCLOBENZAPRINE HCL 10 MG TAB PO PRN ×2 (01:23→15:20)
[2016-12-15] MEDS: HEPARIN-D5W INJ 250 ML IV SCH (03:21)
[2016-12-15 08:00] LABS: APTT (PATIENT) 65.1 SEC (24.3-30.1); INTERNATIONAL NORMALIZED RATIO 1.1 RATIO; PROTHROMBIN TIME - PATIENT 12.3 SEC (9.8-11.6)
[2016-12-15] MEDS: RESP: ALBUTEROL 2.5 MG/IPRATROPIUM 0.5 MG NEB (SCH) NEB ×2 (08:00→08:43)
[2016-12-15] MEDS: CITALOPRAM HYDROBROMIDE 20 MG TAB PO SCH (08:37)
[2016-12-15] MEDS: SODIUM CHLORIDE 0.9% FLUSH 5 ML FLUSH FLUSH SCH ×2 (08:37→20:58)
[2016-12-15] MEDS: POLYETHYLENE GLYCOL 17 GM PKG PO SCH (08:38)
[2016-12-15] MEDS: GABAPENTIN 300 MG CAP PO SCH ×3 (08:38→18:27)
[2016-12-15] MEDS: ALPRAZolam 0.5 MG TAB PO PRN (08:38)
[2016-12-15] MEDS ORDERED: RESP: ALBUTEROL 2.5 MG/IPRATROPIUM 0.5 MG NEB (PRN) NEB (09:30)
--- NOTE | 2016-12-15 09:35 | HHI.PR ---
Subjective Remarks Follow-up for bilateral pulmonary emboli. Patient complains of a headache and an 8/10 back spasm. States she is breathing fine, but she had a cough yesterday morning; denies any sputum production. Denies any fevers or chills. Denies any pleuritic pain. Objective Vitals Vital Signs Date Time Temp Pulse Resp B/P Pulse Ox O2 Delivery O2 Flow Rate FiO2 12/15/16 08:46 97 Nasal Cannula 2.00 12/15/16 08:00 97.7 80 18 104/71 98 12/15/16 00:00 97.5 86 20 110/75 97 12/14/16 20:00 97.1 94 20 112/78 96 12/14/16 20:00 Nasal Cannula 2.00 12/14/16 19:08 95 Nasal Cannula 2.00 12/14/16 16:00 87.0 94 20 114/74 93 12/14/16 12:00 97.0 86 18 111/83 94 I/O 12/14/16 12/14/16 12/14/16 12/15/16 12/15/16 12/15/16 07:00 15:00 23:00 07:00 15:00 23:00 Intake Total 210 ml Balance 210 ml Intake Oral 210 ml # Voids 3 2 Result Diagram: 12/11/16 1135 12/11/16 1016 Imaging Last Impressions Chest X-Ray 12/11/16 1007 Signed Impressions: Service Date/Time: Sunday, December 11, 2016 10:20 - CONCLUSION: No acute disease. Hugh Kaye MD CT Angiography 12/11/16 1007 Signed Impressions: Service Date/Time: Sunday, December 11, 2016 11:08 - CONCLUSION: Large bilateral pulmonary emboli. Hunter Raymond MD FACR Lower Extremity Ultrasound 12/11/16 0000 Signed Impressions: Service Date/Time: Sunday, December 11, 2016 19:51 - CONCLUSION: Negative exam with no evidence of deep venous thrombosis. Mat Amador MD Objective Remarks GENERAL: Well-nourished, well-developed patient in no apparent distress. SKIN: Warm and dry. HEAD: Atraumatic. Normocephalic. CARDIOVASCULAR: Regular rate and rhythm. RESPIRATORY: No accessory muscle use. Clear to auscultation. Breath sounds equal bilaterally. MUSCULOSKELETAL: No lower extremity edema bilaterally. NEUROLOGICAL: Awake and alert. Normal speech. PSYCHIATRIC: Appropriate mood and affect; insight and judgment normal. Urinary Catheter: No Vascular Central Line Catheter: No A/P Problem List: (1) Bilateral pulmonary embolism ICD Code: I26.99 Status: Acute (2) Troponin level elevated ICD Code: R79.89 Status: Acute (3) Diastolic heart failure ICD Code: I50.30 Status: Acute Assessment and Plan (1) Bilateral pulmonary embolism Likely due to postmenopausal estrogen therapy Hypoxemia and shortness of breath; Discussed with RT; Duonebs as needed as patient is CTAB; IS ordered. Patient will continue with heparin/ Coumadin. INR 1.1 today. Continue with patient education Patient will likely need 6-9 months of therapy (2) Troponin level elevated likely due to PE; trended downward No cardiac work up indicated at this time (3) Diastolic heart failure no hemodynamic instability is noted in this patient, clinically improved out of window for thrombolysis RV Likely due to PE BNP improved. Will need cardio follow up for repeat Echo in a few weeks Pain: Tylenol, [place] prn as directed. GI ppx: MiraLAX Discharge Planning D/C when therapeutic on Coumadin. Attending Statement Patient still with subtherapeutic INR Seen in room. Rest or status is better. More ambulatory today Continue Coumadin/heparin for now Will need outpatient echocardiogram in 6 weeks (discussed with patient) The exam, history, and the medical decision-making described in the above note were completed with my assistance as the dictating practitioner. I attest that I had a [id number] encounter with the patient on the same day, and personally performed all of the history, exam, or medical decision making. I reviewed and agree with the plan. Obdulia Gao Dec 15, 2016 09:35 Ginette Aranda MD Dec 15, 2016 17:52
[2016-12-15] MEDS: ACETAMINOPHEN 325 MG TAB PO PRN ×2 (11:24→18:28)
[2016-12-15] MEDS: WARFARIN SOD 6 MG TAB PO SCH (15:20)
[2016-12-15] MEDS: ZOLPIDEM TARTRATE 10 MG TAB PO PRN (20:59)
[2016-12-16] VITALS (7 sets, daily range): BP systolic 94–121; BP diastolic 60–85; PULSE 70–84; RESP 16–18; TEMP 95.5–98.5; O2SAT 93–98
[2016-12-16 06:21] LABS: APTT (PATIENT) 80.8 SEC (24.3-30.1)
[2016-12-16 06:55] LABS: INTERNATIONAL NORMALIZED RATIO 1.3 RATIO; PROTHROMBIN TIME - PATIENT 14.6 SEC (9.8-11.6)
[2016-12-16] MEDS: GABAPENTIN 300 MG CAP PO SCH ×3 (07:56→17:31)
[2016-12-16] MEDS: POLYETHYLENE GLYCOL 17 GM PKG PO SCH (07:56)
[2016-12-16] MEDS: CITALOPRAM HYDROBROMIDE 20 MG TAB PO SCH (07:56)
[2016-12-16] MEDS: ACETAMINOPHEN/HYDROcodone 325 MG/5 MG TAB PO PRN ×3 (07:56→21:47)
[2016-12-16] MEDS: SODIUM CHLORIDE 0.9% FLUSH 5 ML FLUSH FLUSH SCH ×2 (07:59→20:28)
[2016-12-16] MEDS: CYCLOBENZAPRINE HCL 10 MG TAB PO PRN (08:26)
[2016-12-16] MEDS: ALPRAZolam 0.5 MG TAB PO PRN (08:26)
--- NOTE | 2016-12-16 11:16 | HHI.PR ---
Subjective Remarks Patient seen in follow up for PE. Unwell. INR 1.3. Objective Vitals Vital Signs Date Time Temp Pulse Resp B/P Pulse Ox O2 Delivery O2 Flow Rate FiO2 12/16/16 08:56 20 12/16/16 08:55 97.8 73 17 111/73 98 12/16/16 08:05 98 Nasal Cannula 2.00 12/16/16 08:00 Nasal Cannula 2.00 12/16/16 00:00 96.7 70 18 94/69 97 12/15/16 20:35 98 Nasal Cannula 2.00 12/15/16 20:00 96.4 80 18 129/82 96 12/15/16 19:00 Nasal Cannula 2.00 12/15/16 16:00 97.5 80 18 110/77 95 12/15/16 12:46 18 12/15/16 12:00 97.5 76 18 120/86 98 I/O 12/15/16 12/15/16 12/15/16 12/16/16 12/16/16 12/16/16 06:59 14:59 22:59 06:59 14:59 22:59 Intake Total 279 ml 124 ml Balance 279 ml 124 ml IV Total 279 ml 124 ml # Voids 2 3 Objective Remarks GENERAL: This is a well-nourished, well-developed patient, in no apparent distress. CARDIOVASCULAR: Regular rate and rhythm without murmurs, gallops, or rubs. RESPIRATORY: Clear to auscultation. Breath sounds equal bilaterally. No wheezes , rales, or rhonchi. GASTROINTESTINAL: Abdomen soft, non-tender, nondistended. Normal active bowel sounds MUSCULOSKELETAL: Extremities without clubbing, cyanosis, or edema. NEURO: Alert & Oriented x4 to person, place, time, situation. Moves all ext x4 A/P Problem List: (1) Bilateral pulmonary embolism ICD Code: I26.99 Status: Acute Plan: Likely due to postmenopausal estrogen therapy Hypoxemia and shortness of breath continue duo nebs Patient will continue with heparin/ Coumadin continue with patient education Patient will likely need 6-9 months of therapy (2) Troponin level elevated ICD Code: R79.89 Status: Acute Plan: likely due to PE No cardiac work up indicated at this time (3) Diastolic heart failure ICD Code: I50.30 Status: Acute Plan: no hemodynamic instability is noted in this patient, clinically improved out of window for thrombolysis RV Likely due to PE Will need cardio follow up for repeat Echo in a few weeks Assessment and Plan MiraLAX med surg ambulate Discharge Planning Likely discharge in when INR therapeutic on Coumadin Ginette Aranda MD Dec 16, 2016 11:16
[2016-12-16 13:29] LABS: APTT (PATIENT) 56.9 SEC (24.3-30.1)
[2016-12-16] MEDS: WARFARIN SOD 6 MG TAB PO SCH (15:38)
[2016-12-16 20:44] LABS: APTT (PATIENT) 52.7 SEC (24.3-30.1)
[2016-12-16] MEDS: ZOLPIDEM TARTRATE 10 MG TAB PO PRN (21:46)
[2016-12-17] VITALS: BP 97/63; PULSE 74; RESP 16; TEMP 97.4; O2SAT 95
[2016-12-17] MEDS: HEPARIN-D5W INJ 250 ML IV SCH (04:01)
[2016-12-17 06:29] LABS: HEMATOCRIT 39.6 % (35.0-46.0); MEAN CELL VOLUME 96.9 FL (80.0-100.0); MEAN CORPUSCULAR HEMOGLOBIN 32.7 PG (27.0-34.0); MEAN CORPUSCULAR HGB CONC 33.7 % (32.0-36.0); PLATELET COUNT 218 TH/MM3 (150-450); RED BLOOD COUNT 4.09 MIL/MM3 (4.00-5.30); RED CELL DISTRIBUTION WIDTH 13.7 % (11.6-17.2); REVIEW FLAG FINAL; WHITE BLOOD COUNT 5.1 TH/MM3 (4.0-11.0)
[2016-12-17 06:43] LABS: APTT (PATIENT) 58.8 SEC (24.3-30.1); INTERNATIONAL NORMALIZED RATIO 1.2 RATIO; PROTHROMBIN TIME - PATIENT 13.8 SEC (9.8-11.6)
[2016-12-17 08:10] VITALS: O2SAT 94
[2016-12-17 08:14] VITALS: BP 105/69; PULSE 74; RESP 16; TEMP 96.9; O2SAT 94
[2016-12-17] MEDS: SODIUM CHLORIDE 0.9% FLUSH 5 ML FLUSH FLUSH SCH (08:43)
[2016-12-17] MEDS: POLYETHYLENE GLYCOL 17 GM PKG PO SCH (08:43)
[2016-12-17] MEDS: CITALOPRAM HYDROBROMIDE 20 MG TAB PO SCH (08:43)
[2016-12-17] MEDS: ACETAMINOPHEN/HYDROcodone 325 MG/5 MG TAB PO PRN (08:43)
[2016-12-17] MEDS: GABAPENTIN 300 MG CAP PO SCH ×2 (08:43→12:49)
[2016-12-17 09:45] VITALS: BP 111/85; PULSE 85; RESP 16; TEMP 96.5; O2SAT 99
[2016-12-17 12:31] VITALS: BP 106/69; PULSE 82; RESP 15; TEMP 96.5; O2SAT 97
[2016-12-17] MEDS: CYCLOBENZAPRINE HCL 10 MG TAB PO PRN (12:51)
[2016-12-17] MEDS ORDERED: COUM6TAB PO (13:26)
[2016-12-17] MEDS ORDERED: ENOX80P SQ (13:26)
--- NOTE | 2016-12-17 13:27 | HHI.DCPOC ---
Discharge Care Plan Diagnosis: (1) Diastolic heart failure (2) Bilateral pulmonary embolism Goals to Promote Your Health * To prevent worsening of your condition and complications * To maintain your health at the optimal level Directions to Meet Your Goals Take your medications as prescribed Follow your dietary instruction Follow activity as directed Keep your appointments as scheduled Take your immunizations and boosters as scheduled If your symptoms worsen call your PCP, if no PCP go to Urgent Care Center or Emergency Room Smoking is Dangerous to Your Health. Avoid second hand smoke Call the 24-hour hour crisis hotline for domestic abuse at Ginette Aranda MD Dec 17, 2016 13:27
--- NOTE | 2016-12-17 13:29 | HHI.DS ---
cc: Michelle Avila MD Discharge Summary Admission Date Dec 11, 2016 at 12:01 Discharge Date: Dec 17, 2016 Admitting Diagnosis bilateral pulmonary embolism, mild hypoxia (1) Bilateral pulmonary embolism ICD Code: I26.99 (2) Troponin level elevated ICD Code: R79.89 (3) Diastolic heart failure ICD Code: I50.30 Procedures ECHO Brief History - From Admission This is a very pleasant 56-year-old female with no significant past medical history who presented to the ER complaining of shortness of breath beginning yesterday. 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 Symptoms were moderate to severe. Provoked by activity and alleviated by rest. She went to bed and when she woke up this morning she got short of breath even getting dressed. She went to her primary care physician who recommended she come to the hospital. In the emergency department with a CTA revealed large bilateral pulmonary emboli. She was mildly hypoxemic on room air however not in any respiratory distress. Mildly tachycardic however blood pressure stable. She was placed on heparin drip and admitted to intermediate care. The patient does take estrogen product for menopause symptoms. She denies any recent travel. Denies any leg swelling. Denies any family history of blood clots. She is up-to-date on her mammogram and colonoscopy. 10 pt ROS otherwise negative. CBC/BMP: 12/17/16 0540 Significant Findings Laboratory Tests Test 12/14/16 12/15/16 12/15/16 12/16/16 20:29 02:35 07:22 04:57 Activated Partial 45.7 SEC 53.0 SEC 65.1 SEC 80.8 SEC Thromboplast Time (24.3-30.1) (24.3-30.1) (24.3-30.1) (24.3-30.1) Prothrombin Time 12.3 SEC 14.6 SEC (9.8-11.6) (9.8-11.6) B-Type Natriuretic Peptide 135 PG/ML (0-100) Test 12/16/16 12/16/16 12/17/16 13:05 20:23 05:40 Activated Partial 56.9 SEC 52.7 SEC 58.8 SEC Thromboplast Time (24.3-30.1) (24.3-30.1) (24.3-30.1) Prothrombin Time 13.8 SEC (9.8-11.6) Imaging Last Impressions Chest X-Ray 12/11/16 1007 Signed Impressions: Service Date/Time: Sunday, December 11, 2016 10:20 - CONCLUSION: No acute disease. Hugh Kaye MD CT Angiography 12/11/16 1007 Signed Impressions: Service Date/Time: Sunday, December 11, 2016 11:08 - CONCLUSION: Large bilateral pulmonary emboli. Hunter Raymond MD FACR Lower Extremity Ultrasound 12/11/16 0000 Signed Impressions: Service Date/Time: Sunday, December 11, 2016 19:51 - CONCLUSION: Negative exam with no evidence of deep venous thrombosis. Mat Amador MD PE at Discharge GENERAL: Well-nourished, well-developed patient in no apparent distress. SKIN: Warm and dry. HEAD: Atraumatic. Normocephalic. CARDIOVASCULAR: Regular rate and rhythm. RESPIRATORY: No accessory muscle use. Clear to auscultation. Breath sounds equal bilaterally. MUSCULOSKELETAL: No lower extremity edema bilaterally. NEUROLOGICAL: Awake and alert. Normal speech. PSYCHIATRIC: Appropriate mood and affect; insight and judgment normal. Pt update on day of discharge Seen today in follow-up for cycle regulation for pulmonary embolism. Unwell. Discharge plans discussed with patient. Also discussed with nursing team. Medication estrogen discussed with patient Hospital Course Patient is a 56-year-old female was seen and evaluated for bilateral pulmonary embolism. She did have some evidence of cardiac failure from the lower of clots. Patient did well with oxygen for several days as well as bronchodilators and was emanating. She was on heparin and Coumadin and transition to Lovenox and Coumadin at discharge. Pt Condition on Discharge: Good Discharge Disposition: Discharge Home Discharge Time: > 30 minutes Discharge Instructions DIET: Follow Instructions for: Coumadin (Warfarin) Diet Activities you can perform: Regular-No Restrictions Follow up Referrals: PCP Follow-up - 2-3 Days with thomas New Medications: Enoxaparin Inj (Lovenox Inj) 80 mg/0.8 ML Syr 80 MG SQ DAILY Blood Clot Prevention #10 Ref 0 SYRINGE Warfarin (Coumadin) 6 Mg Tab 6 MG PO DAILY@1600 pe #30 TAB Continued Medications: Citalopram (Celexa) 20 Mg Tab 20 MG PO DAILY Control Depression #90 Ref 0 TAB Gabapentin (Gabapentin) 300 Mg Cap 300 MG PO DAILY #90 Ref 0 CAP Meloxicam (Meloxicam) 15 Mg Tab 15 MG PO TID PRN Arthritis Pain #90 Ref 0 TAB Discontinued Medications: Conjugated Estrogens-Medroxyprogesterone (Prempro Blister Pack) 0.3-1.5 Mg Tab 1 TAB PO DAILY Estrogen Supplements #1 Ref 0 PACK Ginette Aranda MD Dec 17, 2016 13:29
[2016-12-17] MEDS ORDERED: ENOXAPARIN SODIUM 80 MG/0.8 ML SYRINGE SQ SCH (13:30)
[2016-12-17] MEDS ORDERED: WARFARIN SOD 10 MG TAB PO ONE (16:00)
[2016-12-18] MEDS ORDERED: WARFARIN SOD 6 MG TAB PO SCH (16:00)
[2016-12-23] MEDS ORDERED: COUM1TAB PO (10:02)
[2017-01-01] MEDS ORDERED: ACYC400T PO (09:48)
[2017-01-14] MEDS ORDERED: COUM6TAB PO (16:07)
[2017-01-21] MEDS ORDERED: COUM1TAB PO (13:42)
[2017-02-07] MEDS ORDERED: ACYC400T PO (16:17)
[2017-02-11] MEDS ORDERED: PRED-503 PO (10:40)
[2017-02-11] MEDS ORDERED: AMOX875T PO (10:43)
[2017-02-11] MEDS ORDERED: HYDR5SYP10 PO (10:44)
[2017-02-11] MEDS ORDERED: IPRASOL INH (10:45)
[2017-02-17] MEDS ORDERED: HYDR5SYP10 PO (15:25)
[2017-02-21] MEDS ORDERED: WARF-21 PO (10:21)
[2017-02-27] MEDS ORDERED: DULO1CAP2 PO (08:45)
[2017-02-27] MEDS ORDERED: LEVO25TA4 PO (09:29)
[2017-03-10] MEDS ORDERED: WARF4TAB52 PO (09:58)
[2017-03-10] MEDS ORDERED: CELE20TA PO (09:58)
[2017-03-22] MEDS ORDERED: WARF-21 PO (15:42)
== END 2016-12-17 15:03 | disposition home or self-care (01) | DRG 176 ==
LOC: PHED 09:48 → PHEDA 12:01 → PHICU 13:25 → PH3A 12-13 14:40 → UNDODISIN 12-17 14:27
PROVIDERS: ADMIT Hospitalist; ATTEND Hospitalist
DX: I26.99 Other pulmonary embolism without acute cor pulmonale (principal); I50.30 Unspecified diastolic (congestive) heart failure; N95.1 Menopausal and female climacteric states; Z79.890 Hormone replacement therapy; R09.02 Hypoxemia; R74.8 Abnormal levels of other serum enzymes; M54.30 Sciatica, unspecified side; G47.00 Insomnia, unspecified
CPT/HCPCS: 71010; 71275; 80053; 82272; 82550; 82805; 83735; 83880; 84484; 85025; 85027; 85610; 85730; 93005; 93306; 93970; 94150; 94620; 94640; 94664; 96365; 96374; 96376; J1200; J1644; J1650; Q9967

== ENCOUNTER 2017-05-22 10:41 | Emergency (ER) | payer BC ==
[~2017-05-22] VITALS: Ht 165.1 cm; Wt 81.8 kg
[~2017-05-22 10:41] MED LIST changes: +ACYC400T PO; -ALPR.5 PO; +DULO1CAP2 PO; +IPRASOL INH; +LEVO25TA4 PO; -MELO-1 PO; -PREM0.3T2 PO; +WARF-21 PO; +WARF4TAB52 PO
[2017-05-22 10:42] VITALS: BP 129/87; PULSE 102; RESP 16; TEMP 98.5; O2SAT 94
[2017-05-22] MEDS ORDERED: WARF-21 PO (10:56)
--- NOTE | 2017-05-22 11:06 | PD ---
HPI Chief Complaint: Abnormal Results Time Seen by Provider: 10:46 Travel History International Travel<30 days: No Contact w/Intl Traveler<30days: No Traveled to known affect area: No History of Present Illness HPI The patient is a 57-year-old female who presents emergency department for epistaxis on Coumadin therapy. The patient had a pulmonary embolism approximately 6 months ago was placed on Coumadin. The patient is currently followed by her primary physician, Dr. Martinez, and her medical record assistant, Dr. Cornejo. The patient states she is currently undergoing a workup for hypercoagulable state and may have a positive antiphospholipid antibody. The patient currently takes Coumadin and is had multiple nosebleeds over the last several weeks. The patient had a nose bleed this morning without any trauma. The patient denies any recent upper respiratory infections, nasal dryness, or picking trauma to the right near. This morning she had a nosebleed with several large clots which is currently resolved. The patient was referred to the emergency department for evaluation of her INR. She denies any history of GI bleeding or change in stools. Symptoms are moderate, possibly exacerbated by taking Coumadin, and self alleviating. PFSH Past Medical History Hx Anticoagulant Therapy: Yes (COUMADIN) Arthritis: Yes (left hip/sciatica issues) Anxiety: Yes (prn meds) Depression: Yes (on daily meds) Cancer: No Cardiovascular Problems: No Diabetes: No Endocrine: No Genitourinary: No Immune Disorder: No Musculoskeletal: No Neurologic: No Psychiatric: No Reproductive: Yes (taking estrogen replacement) Respiratory: No Thyroid Disease: No ?: Not Menopausal: Yes Past Surgical History Appendectomy: Yes Arteriovenous Shunt: No Insulin Pump: No Joint Replacement: No Pacemaker: No Tonsillectomy: Yes Social History Alcohol Use: No Tobacco Use: No Substance Use: No Allergies-Medications (Allergen,Severity, Reaction): Coded Allergies: Prilosec (Verified Allergy, Intermediate, 04/28/17) stomach pains Reported Meds & Prescriptions Reported Meds & Active Scripts Active Celexa (Citalopram Hydrobromide) 20 Mg Tab 20 Mg PO DAILY Levothyroxine (Levothyroxine Sodium) 25 Mcg Tab 25 Mcg PO DAILY Reported Warfarin 7.5 Mg Tab 8.5 Mg PO EVERY OTHER DAY Warfarin 7.5 Mg Tab 7.5 Mg PO EVERY OTHER DAY Gabapentin 300 Mg Cap 300 Mg PO DAILY Review of Systems Except as stated in HPI: all other systems reviewed are Neg General / Constitutional: No: Fever HENT: Positive: Nosebleed Cardiovascular: No: Chest Pain or Discomfort Respiratory: Positive: Shortness of Breath (shortness of breath one month ago) Gastrointestinal: No: Hematemesis, Hematochezia Skin: No Rash Physical Exam Narrative GENERAL: Awake, alert, pleasant 57-year-old female who appears her stated age and is in no acute respiratory distress. SKIN: Focused skin assessment warm/dry. HEAD: Atraumatic. Normocephalic. EYES: Pupils equal and round. No scleral icterus. No injection or drainage. ENT: No nasal bleeding or discharge. Inspection left naris reveals no bleeding. Inspection right naris reveals no active bleeding, there is a clot present on the medial wall approximately 1 cm from the opening. Scab formation is noted. NECK: Trachea midline. No JVD. MUSCULOSKELETAL: No obvious deformities. No clubbing. No cyanosis. No edema. NEUROLOGICAL: Awake and alert. No obvious cranial nerve deficits. Motor grossly within normal limits. Normal speech. PSYCHIATRIC: Appropriate mood and affect; insight and judgment normal. Data Data Last Documented VS Vital Signs Date Time Temp Pulse Resp B/P Pulse Ox O2 Delivery O2 Flow Rate FiO2 05/22/17 10:42 98.5 102 16 129/87 94 Orders Complete Blood Count With Diff (05/22/17 10:58) Act Partial Throm Time (Ptt) (05/22/17 10:58) Prothrombin Time / Inr (Pt) (05/22/17 10:58) Basic Metabolic Panel (Bmp) (05/22/17 10:58) Labs Laboratory Tests Test 05/22/17 11:20 White Blood Count 6.4 TH/MM3 Red Blood Count 4.11 MIL/MM3 Hemoglobin 13.0 GM/DL Hematocrit 39.2 % Mean Corpuscular Volume 95.5 FL Mean Corpuscular Hemoglobin 31.7 PG Mean Corpuscular Hemoglobin 33.2 % Concent Red Cell Distribution Width 14.5 % Platelet Count 278 TH/MM3 Mean Platelet Volume 8.7 FL Neutrophils (%) (Auto) 65.9 % Lymphocytes (%) (Auto) 21.4 % Monocytes (%) (Auto) 7.6 % Eosinophils (%) (Auto) 1.7 % Basophils (%) (Auto) 3.4 % Neutrophils # (Auto) 4.2 TH/MM3 Lymphocytes # (Auto) 1.4 TH/MM3 Monocytes # (Auto) 0.5 TH/MM3 Eosinophils # (Auto) 0.1 TH/MM3 Basophils # (Auto) 0.2 TH/MM3 CBC Comment DIFF FINAL Differential Comment Prothrombin Time 17.2 SEC Prothromb Time International 1.5 RATIO Ratio Activated Partial 36.6 SEC Thromboplast Time Sodium Level 140 MEQ/L Potassium Level 3.8 MEQ/L Chloride Level 107 MEQ/L Carbon Dioxide Level 25.2 MEQ/L Anion Gap 8 MEQ/L Blood Urea Nitrogen 20 MG/DL Creatinine 0.93 MG/DL Estimat Glomerular Filtration 62 ML/MIN Rate Random Glucose 153 MG/DL Calcium Level 8.7 MG/DL [facility] Medical Decision Making Medical Screen Exam Complete: Yes Emergency Medical Condition: Yes Medical Record Reviewed: Yes Interpretation(s) Laboratory Tests Test 05/22/17 11:20 White Blood Count 6.4 TH/MM3 Red Blood Count 4.11 MIL/MM3 Hemoglobin 13.0 GM/DL Hematocrit 39.2 % Mean Corpuscular Volume 95.5 FL Mean Corpuscular Hemoglobin 31.7 PG Mean Corpuscular Hemoglobin 33.2 % Concent Red Cell Distribution Width 14.5 % Platelet Count 278 TH/MM3 Mean Platelet Volume 8.7 FL Neutrophils (%) (Auto) 65.9 % Lymphocytes (%) (Auto) 21.4 % Monocytes (%) (Auto) 7.6 % Eosinophils (%) (Auto) 1.7 % Basophils (%) (Auto) 3.4 % Neutrophils # (Auto) 4.2 TH/MM3 Lymphocytes # (Auto) 1.4 TH/MM3 Monocytes # (Auto) 0.5 TH/MM3 Eosinophils # (Auto) 0.1 TH/MM3 Basophils # (Auto) 0.2 TH/MM3 CBC Comment DIFF FINAL Differential Comment Prothrombin Time 17.2 SEC Prothromb Time International 1.5 RATIO Ratio Activated Partial 36.6 SEC Thromboplast Time Sodium Level 140 MEQ/L Potassium Level 3.8 MEQ/L Chloride Level 107 MEQ/L Carbon Dioxide Level 25.2 MEQ/L Anion Gap 8 MEQ/L Blood Urea Nitrogen 20 MG/DL Creatinine 0.93 MG/DL Estimat Glomerular Filtration 62 ML/MIN Rate Random Glucose 153 MG/DL Calcium Level 8.7 MG/DL Differential Diagnosis Differential diagnosis includes coagulopathy, Coumadin toxicity, elevated INR, anterior epistaxis, posterior epistaxis, thrombocytopenia. Narrative Course IV was established, labs are drawn and sent, and the patient was placed on pulse oximetry monitoring. CBC, BMP, and PT/INR/PTT were sent to lab. The patient's CBC is unremarkable. The patient's INR is actually subtherapeutic at 1.5. She takes 7.5 and a 0.5 on alternating days. She is advised to double her dose today and tomorrow, she has an appointment on Friday with Dr. Martinez for repeat INR. She is also advised to follow-up with her medical record assistant in regards to the definitive length of therapy for her anticoagulation and to have a discussion with Dr. Cornejo in regards to possible either therapies for DVT such as Xarelto. Diagnosis Primary Impression: Epistaxis Additional Impression: Subtherapeutic international normalized ratio (INR) Patient Instructions: General Instructions Additional Instructions: The patient is advised to double her dose of Coumadin today and tomorrow, normal dose on Friday, and repeat INR on Friday with Dr. Martinez as previously directed. Please provide the patient a copy of her labs at discharge. Return if symptoms worsen or progress. Also had a discussion with her medical record assistant in regards to definitive length of therapy and other possibilities besides Coumadin if desired. Med/Other Pt SpecificInfo: Existing Med Changed (Double dose of Coumadin today and tomorrow) Disposition: 01 DISCHARGE HOME Condition: Stable Otilio Raymond MD May 22, 2017 11:06
[2017-05-22 11:31] LABS: AUTOMATED NEUTROPHIL # 4.2 TH/MM3 (1.8-7.7); BASOPHIL # 0.2 TH/MM3 (0-0.2); BASOPHIL % 3.4 % (0.0-2.0); EOSINOPHIL # 0.1 TH/MM3 (0-0.4); EOSINOPHIL % 1.7 % (0.0-4.0); HEMATOCRIT 39.2 % (35.0-46.0); HEMO FLAGS DIFF FINAL; LYMPH % 21.4 % (9.0-44.0); LYMPHOCYTE # 1.4 TH/MM3 (1.0-4.8); MEAN CELL VOLUME 95.5 FL (80.0-100.0); MEAN CORPUSCULAR HEMOGLOBIN 31.7 PG (27.0-34.0); MEAN CORPUSCULAR HGB CONC 33.2 % (32.0-36.0); MONO % 7.6 % (0.0-8.0); NEUT % 65.9 % (16.0-70.0); PLATELET COUNT 278 TH/MM3 (150-450); RED BLOOD COUNT 4.11 MIL/MM3 (4.00-5.30); RED CELL DISTRIBUTION WIDTH 14.5 % (11.6-17.2); WHITE BLOOD COUNT 6.4 TH/MM3 (4.0-11.0)
[2017-05-22 11:42] LABS: POTASSIUM 3.8 MEQ/L (3.5-5.1)
[2017-05-22 11:45] LABS: BICARBONATE 25.2 MEQ/L (21.0-32.0)
[2017-05-22 11:48] LABS: APTT (PATIENT) 36.6 SEC (24.3-30.1); INTERNATIONAL NORMALIZED RATIO 1.5 RATIO; PROTHROMBIN TIME - PATIENT 17.2 SEC (9.8-11.6)
[2017-05-22 12:15] VITALS: BP 130/80; PULSE 88; RESP 16; O2SAT 98
== END 2017-05-22 12:31 | disposition home or self-care (01) ==
LOC: PHED 10:41
DX: R04.0 Epistaxis (principal); Z79.01 Long term (current) use of anticoagulants
CPT/HCPCS: 80048; 85025; 85610; 85730; 99283